=== PATIENT | male | born 1975 | race African-American/Black ===

== ENCOUNTER 2017-02-26 14:05 | Inpatient (IN) | payer OTHER ==
--- NOTE | 2017-02-26 14:11 | PDOC ---
History of Present Illness - General History Source: Patient Exam Limitations: No Limitations - History of Present Illness Initial Comments: 02/26/17 14:43 The patient is a 41 year old male, with no significant past medical history, who presents to the emergency department with a sore throat for the past 2-3 days. Over the past 2-3 days, the patient reports that he has been unable to swallow or speak secondary to his throat pain. The patient additionally reports that because he is having difficulty swallowing, his saliva keeps building up. The patient reports that he was seen at [facility] earlier today but was sent to the ED for further evaluation. The patient reports a fever and right sided ear pain but denies chills, nausea, vomiting or diarrhea. Allergies: None reported. Past Surgical History: None reported. Social History: Non-smoker. PCP: Dr. Mechelle Raza <Evelin Martinez - Last Filed: 02/26/17 14:45> - General History Source: Patient Exam Limitations: No Limitations <Marcello Melvin - Last Filed: 02/26/17 16:38> - General Chief Complaint: Sore Throat Stated Complaint: SORE THROAT Time Seen by Provider: 02/26/17 14:10 Past History <Evelin Martinez - Last Filed: 02/26/17 14:45> <Marcello Melvin - Last Filed: 02/26/17 16:38> - Past Medical History Allergies/Adverse Reactions: Allergies Allergy/AdvReac Type Severity Reaction Status Date / Time No Known Allergies Allergy Verified 02/26/17 14:27 Home Medications: Ambulatory Orders Amoxicillin/Potassium Clav [Augmentin 875-125 Tablet] 1 each PO BID 02/26/17 Prednisone [Deltasone] 20 mg PO DAILY 02/26/17 Review of Systems - Review of Systems Able to Perform ROS?: Yes Comments:: 02/26/17 14:28 CONSTITUTIONAL: Present: +Fever Absent: chills, diaphoresis, generalized weakness, malaise, loss of appetite HEENT: Present: +Sore throat, difficulty swallowing, right ear pain Absent: rhinorrhea, nasal congestion, eye pain, visual changes CARDIOVASCULAR: Absent: chest pain, syncope, palpitations, irregular heart rate, lightheadedness , peripheral edema RESPIRATORY: Absent: cough, shortness of breath, dyspnea with exertion, orthopnea, wheezing, stridor, hemoptysis GASTROINTESTINAL: Absent: abdominal pain, abdominal distension, nausea, vomiting, diarrhea, constipation, melena, hematochezia GENITOURINARY: Absent: dysuria, frequency, urgency, hesitancy, hematuria, flank pain, genital pain MUSCULOSKELETAL: Absent: myalgia, arthralgia, joint swelling SKIN: Absent: rash, itching, pallor HEMATOLOGIC/IMMUNOLOGIC: Absent: easy bleeding, easy bruising, lymphadenopathy, frequent infections ENDOCRINE: Absent: unexplained weight gain, unexplained weight loss, heat intolerance, cold intolerance NEUROLOGIC: Absent: headache, focal weakness or paresthesias, dizziness, unsteady gait, seizure, mental status changes, bladder or bowel incontinence PSYCHIATRIC: Absent: anxiety, depression, suicidal or homicidal ideation, hallucinations <Evelin Martinez - Last Filed: 02/26/17 14:45> *Physical Exam - Physical Exam Comments: 02/26/17 14:28 GENERAL: Well developed, well nourished. Awake and alert. No acute distress. HEENT: Hot potato voice. Trismus. There is bilateral tonsillar edema and exudate most pronounced on the right side. Soft palate swelling noted on right side with uvular deviation to the left. Normocephalic, atraumatic. PERRLA, EOMI. No conjunctival pallor. Sclera are non-icteric. Moist mucous membranes. Oropharynx is clear. NECK: No stridor. Supple. Full ROM. No JVD. Carotid pulses 2+ and symmetric, without bruits. No thyromegaly. No lymphadenopathy. CARDIOVASCULAR: Tachycardic. No murmurs, rubs, or gallops. Distal pulses are 2+ and symmetric. PULMONARY: No evidence of respiratory distress. Lungs clear to auscultation bilaterally. No wheezing, rales or rhonchi. ABDOMINAL: Soft. Non-tender. Non-distended. No rebound or guarding. No organomegaly. Normoactive bowel sounds. MUSCULOSKELETAL: Normal range of motion at all joints. No bony deformities or tenderness. No CVA tenderness. EXTREMITIES: No cyanosis. No clubbing. No edema. No calf tenderness. SKIN: Warm and dry. Normal capillary refill. No rashes. No jaundice. NEUROLOGICAL: Alert, awake, appropriate. Cranial nerves 2-12 intact. No deficits to light touch and temperature in face, upper extremities and lower extremities. No motor deficits in the in face, upper extremities and lower extremities. Normoreflexic in the upper and lower extremities. Normal speech. Toes are down-going bilaterally. Gait is normal without ataxia. PSYCHIATRIC: Cooperative. Good eye contact. Appropriate mood and affect. <Evelin Martinez - Last Filed: 02/26/17 14:45> ED Treatment Course - LABORATORY CBC & Chemistry Diagram: 02/26/17 14:40 02/26/17 14:40 <Marcello Melvin - Last Filed: 02/26/17 16:38> Medical Decision Making - Medical Decision Making 02/26/17 14:18 The patient is well-appearing and in no acute distress He has to SIRS criteria and an obvious source of infection He meets diagnostic criteria for sepsis Given his constellation of signs and symptoms I'm concerned for streptococcal pharyngitis with right-sided peritonsillar abscess Will place IV and begin fluid resuscitation Will administer IV Decadron, IV Toradol for anti-inflammatory treatment Will administer IV Unasyn Will obtain stat labs and initiate sepsis protocol He will require CT soft tissue neck with IV contrast to confirm abscess formation 02/26/17 15:01 Labs have been drawn and pending IV fluids and medications are running plasma processing technician is en route 02/26/17 15:44 CBC noted, with leukocytosis Chemistries noted with mildly elevated creatinine and mild hyponatremia as well as mild hyperglycemia Given the patient's weight, I feel that a creatinine of 1.4 is only mildly elevated Will continue hydration and proceed with CT scan CT pending 02/26/17 16:[address] readings confirm peritonsillar abscess Using ultrasound guidance, a left peritonsillar abscess was identified The area was numbed with a total of 4 mL of lidocaine without epinephrine extending from the superior medial border to the inferior lateral border Using an 18-gauge needle, the needle was inserted into the superior medial border of the abscess, with aspiration of 5 mL of yulissa purulence. Once Using an 18-gauge needle, the needle was then inserted fpc between the first puncture site and the inferior lateral border, with aspiration of 2 mL of yulissa purulence. There was no significant post procedure bleeding Following the procedure, the patient did express some improvement in the pain and in his voice Clinical impression: Pharyngitis, streptococcal Peritonsillar abscess Sepsis Case discussed in detail with admitting provider including history, physical exam and ancillary studies. Admitting physician has assumed care for the patient, will follow all pending diagnostics and will complete the evaluation and treatment. A portion of this note was documented by scribe services under my direction. I have reviewed the details of the note, within reason, and agree with the documentation with the following case summary and management plan written by me. 02/26/17 16:38 Case discussed with ENT, Dr. Perez He feels that the aspiration should be sufficient but will be available for questions should they arise <Marcello Melvin - Last Filed: 02/26/17 16:38> *DC/Admit/Observation/Transfer - Attestations Scribe Attestion: 02/26/17 14:20 Documentation prepared by Evelin Martinez, acting as medical physicist for Marcello Melvin MD. <Evelin Martinez - Last Filed: 02/26/17 14:45> - Discharge Dispostion Admit: Yes <Marcello Melvin - Last Filed: 02/26/17 16:38> Diagnosis at time of Disposition: Sepsis, Pharyngitis, Peritonsillar abscess - Discharge Dispostion Condition at time of disposition: Fair - Referrals Referrals: Mechelle Raza [Primary Care Provider] -
[2017-02-26] MEDS ORDERED: KETOROLAC TROMETHAMINE 30 MG/1 ML VIAL IVPUSH ONE (14:17)
[2017-02-26] MEDS ORDERED: DEXAMETHASONE SOD PHOSPHATE 10 MG/1 ML VIAL IVPUSH ONE (14:17)
[2017-02-26] MEDS ORDERED: AMPICILLIN NA/SULBACTAM NA 3 GM in SODIUM CHLORIDE 100 ML IVPB ONE (14:18)
[2017-02-26] MEDS ORDERED: DEXTROSE 5%-NORMAL SALINE 1,000 ML IV SCH (14:30)
[2017-02-26] MEDS ORDERED: KETOROLAC TROMETHAMINE 30 MG/1 ML VIAL ONE (14:51)
[2017-02-26] MEDS ORDERED: DEXAMETHASONE SOD PHOSPHATE 10 MG/1 ML VIAL ONE (14:51)
[2017-02-26] MEDS ORDERED: AMPICILLIN NA/SULBACTAM NA 3 GM VIAL ONE (14:51)
[2017-02-26 15:10] LABS: ACTIVATED PTT 25.9 SECONDS (24.0-38.9); ALBUMIN 4.7 g/dl (3.5-5.0); ALK PHOS 58 U/L (32-92); ANION GAP 8 (8-16); BILIRUBIN,TOTAL 2.6 mg/dl (0.2-1.0); CALCIUM 9.7 mg/dl (8.4-10.2); CO2 28 mmol/L (22-28); CREATININE 1.4 mg/dl (0.6-1.3); GLUCOSE,RANDOM 115 mg/dl (74-106); SGOT/AST 23 U/L (10-42); SGPT/ALT 18 U/L (10-40); TOT PROT 8.7 g/dl (6.4-8.3)
[2017-02-26 15:14] LABS: INR 1.27 (0.82-1.09); PROTHROMBIN TIME (PATIENT) 14.2 SEC (10.2-13.0)
[2017-02-26 15:19] LABS: MCH 31.6 pg (25.7-33.7); MCHC 35.4 g/dl (32.0-35.9); MEAN CELL VOLUME 89.2 fl (80-96); MEAN PLT VOLUME 9.4 fl (7.5-11.1); PLATELET COUNT 168 K/MM3 (134-434); RDW 12.8 % (11.9-15.9); WHITE BLOOD COUNT 20.4 K/mm3 (4.0-10.8)
[2017-02-26] MEDS ORDERED: SODIUM CHLORIDE 1,000 ML IV STA (15:45)
[2017-02-26] MEDS ORDERED: morphine CARPU-JECT 2 MG/1 ML DISP.SYRIN IVPUSH PRN (16:43)
[2017-02-26 17:48] VITALS: BMI 29.0
[2017-02-26 18:13] LABS: URINE APPEARANCE Clear; URINE BILIRUBIN Negative (NEGATIVE); URINE GLUCOSE (UA) 1+ (NEGATIVE); URINE KETONE Trace (NEGATIVE); URINE LEUK ESTERASE Negative (NEGATIVE); URINE NITRITE Negative (NEGATIVE); URINE UROBILINOGEN >=8.0 E.U./dl (0.2-1.0)
[2017-02-26 18:31] LABS: URINE BLOOD 2+ (NEGATIVE); URINE COLOR YELLOW; URINE PROTEIN 2+ (NEGATIVE)
[2017-02-26 19:00] LABS: PLATELET ESTIMATE ADEQUATE (NORMAL)
[2017-02-26] MEDS: SODIUM CHLORIDE 1,000 ML IV SCH (20:51)
[2017-02-26] MEDS: AMPICILLIN NA/SULBACTAM NA 3 GM in SODIUM CHLORIDE 100 ML IVPB SCH (21:05)
--- NOTE | 2017-02-26 21:48 | HP ---
CHIEF COMPLAINT: Sore throat PCP: Mechelle Raza HISTORY OF PRESENT ILLNESS: This is a 41 year old male with no significant past medical history who presented to the ED for sore throat; was sent from urgent care. Pt reports sore throat x 2-3 days, hot cold flashes x 2 days. Pt has been unable to swallow liquids including his own saliva. Pt underwent needle aspiration of peritonsillar abscess in ED and is now feeling a little better. Pt reports a hospitalization in 1987 for a similar episode but a tonsillectomy was not done at that time ER course was notable for: (1) Needle aspiration of peritonsillar abscess (2) WBC 20.4 Recent Travel: pt denies PAST MEDICAL HISTORY: "pinched nerve in neck" PAST SURGICAL HISTORY: pt denies Social History: Smoking: occ, sometimes when he goes out Alcohol: 2-3 x / week Drugs: pt denies Family History: mother alive and well-obses, father unknown brother and sisters alive and well, obesity and osteoarthritis one child alive and well Allergies No Known Allergies Allergy (Verified 02/26/17 14:27) HOME MEDICATIONS: No home medications REVIEW OF SYSTEMS CONSTITUTIONAL: Present: fever, chills Absent: diaphoresis, generalized weakness, malaise, loss of appetite, weight change HEENT: Present: throat pain, difficulty swallowing, continues to be spitting saliva, not clearly managing oral secretions Absent: rhinorrhea, nasal congestion, throat swelling, mouth swelling, ear pain , eye pain, visual changes CARDIOVASCULAR: Absent: chest pain, syncope, palpitations, irregular heart rate, lightheadedness , peripheral edema RESPIRATORY: Absent: cough, shortness of breath, dyspnea with exertion, orthopnea, wheezing, stridor, hemoptysis GASTROINTESTINAL: Absent: abdominal pain, abdominal distension, nausea, vomiting, diarrhea, constipation, melena, hematochezia GENITOURINARY: Absent: dysuria, frequency, urgency, hesitancy, hematuria, flank pain, genital pain MUSCULOSKELETAL: Absent: myalgia, arthralgia, joint swelling, back pain, neck pain SKIN: Absent: rash, itching, pallor HEMATOLOGIC/IMMUNOLOGIC: Absent: easy bleeding, easy bruising, lymphadenopathy, frequent infections ENDOCRINE: Absent: unexplained weight gain, unexplained weight loss, heat intolerance, cold intolerance NEUROLOGIC: Present: headache Absent: focal weakness or paresthesias, dizziness, unsteady gait, seizure, mental status changes, bladder or bowel incontinence PSYCHIATRIC: Absent: anxiety, depression, suicidal or homicidal ideation, hallucinations. PHYSICAL EXAMINATION Vital Signs - 24 hr 3 02/26/17 02/26/17 14:10 17:16 Temperature 102.3 F H 100.4 F H Pulse Rate 104 H 85 Respiratory 18 18 Rate Blood Pressure 122/84 140/83 O2 Sat by Pulse 98 98 Oximetry (%) GENERAL: Awake, alert, and fully oriented, in no acute distress. HEAD: Normal with no signs of trauma. EYES: Pupils equal, round and reactive to light, extraocular movements intact, sclera anicteric, conjunctiva clear. No lid lag. EARS, NOSE, THROAT: Ears normal, nares patent. Moist mucous membranes. + erythema, exudate and edema bilat tonsils. Uvula no longer deviated. Needle incision oh noted. NECK: Normal range of motion, supple without lymphadenopathy, JVD, or masses. soft tissue mass noted lateral to right thyroid, nontender LUNGS: Breath sounds equal, clear to auscultation bilaterally. No wheezes, and no crackles. No accessory muscle use. HEART: Regular rate and rhythm, normal S1 and S2 without murmur, rub or gallop. ABDOMEN: Soft, nontender, not distended, normoactive bowel sounds, no guarding, no rebound, no masses. No hepatomegaly or splenomegaly. MUSCULOSKELETAL: Normal range of motion at all joints. No bony deformities or tenderness. No CVA tenderness. UPPER EXTREMITIES: 2+ pulses, warm, well-perfused. No cyanosis. No clubbing. No peripheral edema. LOWER EXTREMITIES: 2+ pulses, warm, well-perfused. No calf tenderness. No peripheral edema. NEUROLOGICAL: Cranial nerves II-XII intact. Normal speech. Normal gait. PSYCHIATRIC: Cooperative. Good eye contact. Appropriate mood and affect. SKIN: Warm, dry, normal turgor, no rashes or lesions noted, normal capillary refill. Laboratory Results - last 24 hr 3 02/26/17 02/26/17 02/26/17 14:40 14:40 14:40 WBC 20.4 H RBC 5.40 Hgb 17.1 H Hct 48.2 MCV 89.2 MCHC 35.4 RDW 12.8 Plt Count 168 MPV 9.4 Neutrophils % 85.0 H Lymphocytes % 4.0 L Monocytes % 6.0 Basophils % 2.0 Band Neutrophils 3.0 Platelet Estimate Adequate Platelet Comment Few large plts INR 1.27 H PTT (Actin FS) 25.9 L Sodium 135 L Potassium 3.4 L Chloride 99 Carbon Dioxide 28 Anion Gap 8 BUN 14 Creatinine 1.4 H Creat Clearance w eGFR 55.31 Random Glucose 115 H Lactic Acid 1.7 Calcium 9.7 Total Bilirubin 2.6 H Direct Bilirubin 0.5 H AST 23 ALT 18 Alkaline Phosphatase 58 Total Protein 8.7 H Albumin 4.7 Urine Color Urine Appearance Urine pH Ur Specific Lane Urine Protein Urine Glucose (UA) Urine Ketones Urine Blood Urine Nitrite Urine Bilirubin Urine Urobilinogen Ur Leukocyte Esterase Urine RBC Urine WBC Ur Epithelial Cells 3 02/26/17 17:30 Urine Color Yellow Urine Appearance Clear Urine pH 6.[address] 1.010 Urine Protein 2+ H Urine Glucose (UA) 1+ H Urine Ketones Trace Urine Blood 2+ H Urine Nitrite Negative Urine Bilirubin Negative Urine Urobilinogen >=8.0 e.u./dl Ur Leukocyte Esterase Negative Urine RBC 5-8 Urine WBC 3-5 Ur Epithelial Cells 0-[address]/SOFT TISSUE NECK CT WITH CONTR Neck soft tissue CT (with contrast) Clinical information: suspected right peritonsillar abscess Multiplanar imaging was performed following the intravenous administration of nonionic contrast A lobulated rim-enhancing fluid collection consistent with abscess formation measuring approximately 6 x 3 x 2 cm in overall size is noted within the right peritonsillar region extending superiorly into the right lateral half of the uvula and bulging inferiorly into the right pyriform sinus. There is also probable superior extension into the lateral aspect of the the right nasopharynx with thickening of the torus tubarius. A very small amount of fluid accumulation is seen within the right submandibular triangle abutting the posterior border of the submandibular gland. No discrete abscess is visualized in that region. A mildly enlarged homogeneous right internal jugular lymph node is seen which is probably reactive in nature. An approximately 4 x 3.4 x 2.4 cm nonspecific isodense nonenhancing lesion is noted along the ventral lateral aspect of the right neck abutting the thyroid lamina. There is no definite intralaryngeal extension. No discrete cartilage defect is noted. As to whether this structure is superficial or deep to the ipsilateral strap muscle is difficult to determine on the basis of this exam. The remaining soft tissue structures demonstrate no definite CT pathology. There is partial obscuration of soft tissue detail due to metallic artifact arising from right ear jewelry. Impression: a large right peritonsillar abscess is noted with superior and inferior extension as discussed above. A nonspecific 4 x 3.4 x 2.4 cm lesion is seen abutting the ventral lateral aspect of the right thyroid lamina - ? Eccentric thyroglossal duct cyst with intraluminal debris, versus a brachial cleft cyst with internal debris, and probably less likely representing a soft tissue mass lesion on the basis of this exam. Additional evaluation utilizing contrast enhanced MRI is suggested. This lesion was partially imaged at the time of a cervical spine MRI study of 09/08/2015. Allowing for only partial visualization at the time of the 2016 study there probably has been no gross interval change. Correlate clinically ASSESSMENT/PLAN: 41yM with no significant PMH presented with throat pain. Pt has been admitted for peritonsillar abscess. Sepsis secondary to peritonsillar abscess - as evidenced by fever, elevated WBC and tachycardia - s/p needle aspiration of abscess, culture pending - cont unasyn 3g q6h IVPB - NS @ 100cc/hr as pt still not taking liquids adequately. - given decadron in ED - ENT consult if not improving elevated Cr - Cr 1.4, no previous baseline - repeat BMP in AM elevated bilirubin - repeat LFTs in am, no hepatomegaly DVT PPX - chemoprophylaxis deferred, pt fully ambulatory. Encourage ambulation. FEN - NS @ 100cc/hr - Repeat BMP in am - clear liquids as tolerated, can trial soft diet tomorrow if feeling better. Dispo: Pt requires inpatient management of his emergent condition. Visit type - Emergency Visit Emergency Visit: Yes ED Registration Date: 02/26/17 Care time: The patient presented to the Emergency Department on the above date and was hospitalized for further evaluation of their emergent condition. - New Patient This patient is new to me today: Yes Date on this admission: 02/26/17 - Critical Care Critical Care patient: No
[2017-02-26] MEDS ORDERED: ACETAMINOPHEN 650 MG/20.3 ML ORAL SOLUTION (CUPS) PO PRN (23:18)
[2017-02-27] MEDS: AMPICILLIN NA/SULBACTAM NA 3 GM in SODIUM CHLORIDE 100 ML IVPB SCH ×3 (02:48→15:17)
[2017-02-27 09:10] LABS: BASOPHIL 0.2 % (0-2.0); MCH 30.4 pg (25.7-33.7); MCHC 33.8 g/dl (32.0-35.9); MEAN CELL VOLUME 89.9 fl (80-96); MEAN PLT VOLUME 9.4 fl (7.5-11.1); NEUTROPHILS 90.9 % (42.8-82.8); PLATELET COUNT 163 K/MM3 (134-434); RDW 12.8 % (11.9-15.9); WHITE BLOOD COUNT 20.9 K/mm3 (4.0-10.8)
--- NOTE | 2017-02-27 09:17 | EKG ---
Test Reason : Blood Pressure : / mmHG Vent. Rate : 093 BPM Atrial Rate : 093 BPM P-R Int : 156 ms QRS Dur : 082 ms QT Int : 302 ms P-R-T Axes : 050 032 014 degrees QTc Int : 375 ms SINUS RHYTHM NONSPECIFIC T WAVE ABNORMALITY ABNORMAL ECG NO PREVIOUS ECGS AVAILABLE Confirmed by BILLY ZAVALETA MD ([id number]) on 02/27/2017 9:17:49 AM Referred By: PONCE Confirmed By:BILLY ZAVALETA MD
[2017-02-27] MEDS ORDERED: PT OWN MED DRAWER 7, Y5N ONE ×2 (09:21→14:33)
[2017-02-27 11:30] LABS: ANION GAP 10 (8-16); CO2 22 mmol/L (22-28)
[2017-02-27] MEDS: SODIUM CHLORIDE 1,000 ML IV SCH (11:33)
[2017-02-27 11:36] LABS: CALCIUM 8.8 mg/dl (8.4-10.2); CREATININE 0.9 mg/dl (0.6-1.3); GLUCOSE,RANDOM 131 mg/dl (74-106)
[2017-02-27 11:39] LABS: ALBUMIN 3.4 g/dl (3.5-5.0); BILIRUBIN,DIRECT 0.3 mg/dl (0.0-0.2); BILIRUBIN,TOTAL 1.4 mg/dl (0.2-1.0); TOT PROT 6.6 g/dl (6.4-8.3)
[2017-02-27] MEDS ORDERED: D5-1/2NS+20 MEQ KCL - 1,000 ML IV SCH (13:15)
--- NOTE | 2017-02-27 13:54 | PN ---
Physical Exam: SUBJECTIVE: Patient seen and examined, patient reports feeling slightly improved, denies any tactile fever OBJECTIVE: patient is a 41 y/o male with no significant past medical history, patient was admitted from the emergency department for sepsis from a peritonsilar abscess, s /p needle aspiration. Vital Signs Period Temp Pulse Resp BP Sys/Rouse Pulse Ox Last 24 Hr 98.6 F-99.1 F 61-75 19-20 113-129/66-78 96-99 GENERAL: The patient is awake, alert, and fully oriented, in no acute distress. HEAD: Normal with no signs of trauma. EYES: PERRL, extraocular movements intact, sclera anicteric, conjunctiva clear. No ptosis. ENT: Ears normal, nares patent, + 3 erythematous tonsil, no uvula deviation, erythema noted to soft palate, moist mucous membranes. NECK: Trachea midline, full range of motion, supple. LUNGS: Breath sounds equal, clear to auscultation bilaterally, no wheezes, no crackles, no accessory muscle use. HEART: Regular rate and rhythm, S1, S2 without murmur, rub or gallop. ABDOMEN: Soft, nontender, nondistended, normoactive bowel sounds, no guarding, no rebound, no hepatosplenomegaly, no masses. EXTREMITIES: 2+ pulses, warm, well-perfused, no edema. NEUROLOGICAL: Cranial nerves II through XII grossly intact. Normal speech, gait not observed. PSYCH: Normal mood, normal affect. SKIN: Warm, dry, normal turgor, no rashes or lesions noted Laboratory Results - last 24 hr 02/26/17 02/26/17 02/27/17 17:30 20:45 07:00 WBC 20.9 H RBC 4.61 Hgb 14.0 D Hct 41.4 MCV 89.9 MCHC 33.8 RDW 12.8 Plt Count 163 MPV 9.4 Neutrophils % 90.9 H Lymphocytes % 4.3 L Monocytes % 4.6 Eosinophils % 0.0 Basophils % 0.2 Sodium Potassium Chloride Carbon Dioxide Anion Gap BUN Creatinine Random Glucose Lactic Acid 1.2 Calcium Total Bilirubin Direct Bilirubin AST ALT Alkaline Phosphatase Total Protein Albumin Urine Color Yellow Urine Appearance Clear Urine pH 6.0 Ur Specific [place] 1.010 Urine Protein 2+ H Urine Glucose (UA) 1+ H Urine Ketones Trace Urine Blood 2+ H Urine Nitrite Negative Urine Bilirubin Negative Urine Urobilinogen >=8.0 e.u./dl Ur Leukocyte Esterase Negative Urine RBC 5-8 Urine WBC 3-5 Ur Epithelial Cells 0-3 02/27/17 02/27/17 07:00 08:12 WBC RBC Hgb Hct MCV MCHC RDW Plt Count MPV Neutrophils % Lymphocytes % Monocytes % Eosinophils % Basophils % Sodium 139 Potassium 3.5 Chloride 107 Carbon Dioxide 22 D Anion Gap 10 BUN 15 Creatinine 0.9 D Random Glucose 131 H Lactic Acid Calcium 8.8 Total Bilirubin 1.4 H D Direct Bilirubin 0.3 H D AST 21 ALT 17 Alkaline Phosphatase 43 D Total Protein 6.6 D Albumin 3.4 L D Urine Color Urine Appearance Urine pH Ur Specific [place] Urine Protein Urine Glucose (UA) Urine Ketones Urine Blood Urine Nitrite Urine Bilirubin Urine Urobilinogen Ur Leukocyte Esterase Urine RBC Urine WBC Ur Epithelial Cells Active Medications Generic Name Dose Route Start Last Admin Trade Name Freq PRN Reason Stop Dose Admin Acetaminophen 650 mg 02/26/17 23:18 Tylenol Oral Solution - PO Q4H PRN FEVER OR PAIN Ampicillin Sodium/Sulbactam 100 mls @ 200 mls/hr 02/26/17 21:00 02/27/17 09:25 Sodium 3 gm/ Sodium Chloride IVPB 200 mls/hr Q6H-IV EDILBERTO Administration Potassium Chloride/Dextrose/Sod Cl 1,000 mls @ 125 mls/hr 02/27/17 13:15 D5-1/2ns+20 Meq Kcl - IV ASDIR EDILBERTO Morphine Sulfate 1 mg 02/26/17 16:43 Morphine Injection - IVPUSH Q4H PRN PAIN Microbiology 02/26/17 16:15 Abscess Gram Stain - Final 02/26/17 14:25 Throat Group A Strep Rapid Antigen - Final, negative IMAGING ct/soft tissue neck w/contrast: large right peritonsilar abscess, nonspecific 4x3.4x2.4cm lesion ventral lateral aspect of the right thyroid lamina, ? eccentric thyroglossal duct cyst with intraluminal debris, versus a brachial cleft cyst with internal debris. (as per radiologist, Dr Worley) ASSESSMENT/PLAN: 1)Sepsis secondary to peritonsillar abscess - low grade temp noted, leukocytosis noted - f/u abscess and throat culture - continue unasyn 3gm q6h, appreciate ID input for antibiotic approval - ct results reviewed with patient made aware of thyroglossal cyst and will require outpatient ent follow up, pt verbalizes understanding - will require outpatient ent follow up 2) neph josette - repeat creatine 0.9, likely secondary to dehydration, continue ivf DVT PPX - chemoprophylaxis deferred, pt fully ambulatory. Encourage ambulation. FEN - IVF @125ml/hr - Repeat BMP in am - full liquid as tolerated, can trial soft diet tomorrow if feeling better. Dispo: Pt requires inpatient management of his emergent condition. Visit type - Emergency Visit Emergency Visit: Yes ED Registration Date: 02/26/17 Care time: The patient presented to the Emergency Department on the above date and was hospitalized for further evaluation of their emergent condition. - New Patient This patient is new to me today: Yes Date on this admission: 02/27/17 - Critical Care Critical Care patient: No - Discharge Referral Referred to [facility] Med [facility].: No
[2017-02-27 16:47] LABS: MCH 30.6 pg (25.7-33.7); MEAN CELL VOLUME 90.2 fl (80-96); MEAN PLT VOLUME 9.3 fl (7.5-11.1); PLATELET COUNT 153 K/MM3 (134-434); RDW 12.6 % (11.9-15.9); WHITE BLOOD COUNT 19.9 K/mm3 (4.0-10.8)
[2017-02-27 19:26] LABS: PLATELET ESTIMATE ADEQUATE (NORMAL)
[2017-02-27] MEDS: AMPICILLIN NA/SULBACTAM NA 100 ML IVPB SCH (20:36)
[2017-02-28] MEDS: AMPICILLIN NA/SULBACTAM NA 100 ML IVPB SCH ×4 (02:15→20:30)
[2017-02-28 08:48] LABS: BASOPHIL 0.5 % (0-2.0); EOSINOPHIL 0.2 % (0-4.5); MCH 30.9 pg (25.7-33.7); MCHC 34.2 g/dl (32.0-35.9); MEAN CELL VOLUME 90.4 fl (80-96); MEAN PLT VOLUME 9.9 fl (7.5-11.1); NEUTROPHILS 72.6 % (42.8-82.8); PLATELET COUNT 152 K/MM3 (134-434); RDW 12.9 % (11.9-15.9); WHITE BLOOD COUNT 11.8 K/mm3 (4.0-10.8)
[2017-02-28 08:51] LABS: ANION GAP 7 (8-16); CALCIUM 8.3 mg/dl (8.4-10.2); CO2 26 mmol/L (22-28); GLUCOSE,RANDOM 98 mg/dl (74-106)
--- NOTE | 2017-02-28 09:26 | PN ---
Progress Note (short form) - Note Progress Note: ID Consult dictated R peritonsillar abscess s/p aspiration Leukocytosis Await c/s Continue Unasyn 3gm IVPB q6h ENT evaluation
--- NOTE | 2017-02-28 11:06 | CONS ---
DATE OF CONSULTATION: DATE OF DICTATION: 02/28/2017 The patient is a 41-year-old previously healthy male evaluated for right peritonsillar abscess. Patient presented to the hospital with a 2- to 3-day history of worsening sore throat. He had presented to an urgent care center with complaints of worsening sore throat. In the urgent care center he was prescribed Augmentin and prednisone. He states that he was unable to swallow the medication and was unable to take it. He did develop worsening throat pain with dysphagia, odynophagia, and inability to even tolerate oral liquids. He presented to the emergency room on February 26, 2017, where a CAT scan showed a large right peritonsillar abscess. An aspiration was performed in the emergency room, and 5 mL of pus was obtained. It was sent for culture. He was empirically treated with Unasyn. In addition, the patient received a dose of dexamethasone. He reports clinical improvement on the IV antibiotic therapy and steroids status post aspiration. He is now able to tolerate liquids and reports his voice has improved. He reports improvement in the dysphagia and odynophagia. His course has been complicated by fever to 102.3. PAST MEDICAL HISTORY: Negative. ALLERGIES: No known allergies. MEDICATIONS: Medications at the present time include Tylenol, Unasyn, morphine injection. SOCIAL HISTORY: Positive tobacco, occasional EtOH. 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 REVIEW OF SYSTEMS: Neurologic: No loss of consciousness, seizure activity, focal weakness. Cardiac: Negative chest pain or palpitations. Respiratory: Negative cough or sputum production. Gastrointestinal: Negative vomiting or diarrhea. Genitourinary: Negative for urinary tract infection. LABORATORY DATA: White count on admission 20.4, presently 19.9, 85 neutrophils, 8 lymphocytes, 6 monocytes. Hematocrit 41.0, platelet count 153. BUN 15, creatinine 0.9. [place] spot negative. Urinalysis: White cells 3-5. Blood culture is negative. Throat culture negative. Aspirate of the abscess is pending. PHYSICAL EXAMINATION: General: He is awake and alert. He is in no acute distress. Respiratory: Status is stable. Breathing is not labored. No stridor or wheeze. Vital Signs: Temperature 98.1, T-max 102.3. Blood pressure 114/74. Pulse 51, regular. Respirations 17 per minute. HEENT: Sclerae are anicteric. Oropharynx: There is slight injection, right tonsillar bed. The airway is patent. There is no exudate. Neck: Supple. No palpable nodes. Cardiovascular: Heart sounds S1, S2. Lungs: Clear, no stridor or wheezing. Abdomen: Soft. No tenderness elicited. No mass, rebound, or rigidity. Extremities: Negative for edema. IMPRESSION: 1. Right peritonsillar abscess status post aspiration. 2. Leukocytosis, multifactorial. Await blood and aspirate culture results. Continue empiric Unasyn 3 g IV piggyback every 6 hours. Repeat complete blood count. Ear, Nose, and Throat evaluation. Will follow. Thank you for the kind referral. SORAIDA CHATTERJEE M.D. [id number]
--- NOTE | 2017-02-28 15:16 | PN ---
Physical Exam: SUBJECTIVE: Patient seen and examined, reports feeling much better, drinking broth OBJECTIVE:patient is a 41 y/o male with no significant past medical history, patient was admitted from the emergency department for sepsis from a peritonsilar abscess, s/p needle aspiration. Vital Signs Period Temp Pulse Resp BP Sys/Rouse Pulse Ox Last 24 Hr 98.1 F-98.7 F 51-57 17-21 113-123/60-76 100-100 GENERAL: The patient is awake, alert, and fully oriented, in no acute distress. HEAD: Normal with no signs of trauma. EYES: PERRL, extraocular movements intact, sclera anicteric, conjunctiva clear. No ptosis. ENT: Ears normal, nares patent, speech less muffled, no trisums, +2 tonsils, erythema noted to soft palate, moist mucous membranes. NECK: Trachea midline, full range of motion, supple. LUNGS: Breath sounds equal, clear to auscultation bilaterally, no wheezes, no crackles, no accessory muscle use. HEART: Regular rate and rhythm, S1, S2 without murmur, rub or gallop. ABDOMEN: Soft, nontender, nondistended, normoactive bowel sounds, no guarding, no rebound, no hepatosplenomegaly, no masses. EXTREMITIES: 2+ pulses, warm, well-perfused, no edema. NEUROLOGICAL: Cranial nerves II through XII grossly intact. Normal speech, gait not observed. PSYCH: Normal mood, normal affect. SKIN: Warm, dry, normal turgor, no rashes or lesions noted Laboratory Results - last 24 hr 02/27/17 02/28/17 02/28/17 16:30 05:53 05:53 WBC 19.9 H 11.8 H D RBC 4.54 4.08 Hgb 13.9 12.6 Hct 41.0 36.8 MCV 90.2 90.4 MCHC 34.0 34.2 RDW 12.6 12.9 Plt Count 153 152 MPV 9.3 9.9 Neutrophils % 85.0 H 72.6 Lymphocytes % 8.0 D 17.2 D Monocytes % 6.0 9.5 Eosinophils % 0.2 D Basophils % 0.5 Band Neutrophils 1.0 D Platelet Estimate Adequate Sodium 139 Potassium 3.5 Chloride 106 Carbon Dioxide 26 Anion Gap 7 L BUN 11 D Creatinine 1.0 Random Glucose 98 D Calcium 8.3 L Active Medications Generic Name Dose Route Start Last Admin Trade Name Miquel PRN Reason Stop Dose Admin Acetaminophen 650 mg 02/26/17 23:18 Tylenol Oral Solution - PO Q4H PRN FEVER OR PAIN Potassium Chloride/Dextrose/Sod Cl 1,000 mls @ 125 mls/hr 02/27/17 13:15 13:30 D5-1/2ns+20 Meq Kcl - IV 125 mls/hr ASDIR EDILBERTO Administration Ampicillin Sodium/Sulbactam Sodium 100 mls @ 200 mls/hr 02/27/17 21:00 09:16 Unasyn 3 Gm (Pre-Docked) IVPB 200 mls/hr Q6H-IV EDILBERTO Administration Morphine Sulfate 1 mg 02/26/17 16:43 Morphine Injection - IVPUSH Q4H PRN PAIN Microbiology 02/26/17 14:40 Blood - Peripheral Venous Blood Culture - Preliminary NO GROWTH OBTAINED AFTER 48 HOURS, INCUBATION TO CONTINUE FOR 3 DAYS. 02/26/17 14:40 Blood - Peripheral Venous Blood Culture - Preliminary NO GROWTH OBTAINED AFTER 48 HOURS, INCUBATION TO CONTINUE FOR 3 DAYS. 02/26/17 16:15 Abscess Gram Stain - Final 02/26/17 16:15 Abscess Wound Culture - Preliminary Pending Organism Pending Organism#2 02/26/17 14:25 Throat Throat Culture - Final NO BETA HEMOLYTIC STREPTOCOCCI ISOLATED 02/26/17 14:25 Throat Group A Strep Rapid Antigen - Final IMAGING ct/soft tissue neck w/contrast: large right peritonsilar abscess, nonspecific 4x3.4x2.4cm lesion ventral lateral aspect of the right thyroid lamina, ? eccentric thyroglossal duct cyst with intraluminal debris, versus a brachial cleft cyst with internal debris. (as per radiologist, Dr Worley) ASSESSMENT/PLAN: 1)Sepsis secondary to peritonsillar abscess - pt afebrile, wbc trending downward - abscess culture pending organism and throat culture NTD - continue unasyn 3gm q6h, ID consulted and following - ct results reviewed with patient made aware of thyroglossal cyst and will require outpatient ent follow up, pt verbalizes understanding - will require outpatient ent follow up 2) neph josette - creatine wnl after IV hydration DVT PPX - chemoprophylaxis deferred, pt fully ambulatory. Encourage ambulation. FEN - IVF @ 75ml/hr - Repeat BMP in am - trial soft diet today, d/c tomm if afebrile and leukocytosis resolved . Dispo: Pt requires inpatient management of his emergent condition. Visit type - Emergency Visit Emergency Visit: Yes ED Registration Date: 02/26/17 Care time: The patient presented to the Emergency Department on the above date and was hospitalized for further evaluation of their emergent condition. - New Patient This patient is new to me today: No - Critical Care Critical Care patient: No - Discharge Referral Referred to [facility] Med P.C.: No
[2017-02-28] MEDS ORDERED: D5-1/2NS+20 MEQ KCL - 1,000 ML IV SCH (15:39)
[2017-02-28] MEDS ORDERED: PT OWN MED DRAWER 7, Y5N ONE ×2 (16:14→20:24)
[2017-03-01] MEDS ORDERED: PT OWN MED DRAWER 7, Y5N ONE (03:07)
[2017-03-01] MEDS: AMPICILLIN NA/SULBACTAM NA 100 ML IVPB SCH ×2 (03:10→09:49)
[2017-03-01 06:39] VITALS: BP 114/74; PULSE 49; TEMP 98.5
[2017-03-01 09:10] LABS: EOSINOPHIL 0.7 % (0-4.5); MCH 30.3 pg (25.7-33.7); MCHC 34.1 g/dl (32.0-35.9); MEAN CELL VOLUME 88.8 fl (80-96); MEAN PLT VOLUME 9.2 fl (7.5-11.1); NEUTROPHILS 55.2 % (42.8-82.8); PLATELET COUNT 185 K/MM3 (134-434); RDW 12.6 % (11.9-15.9); WHITE BLOOD COUNT 6.4 K/mm3 (4.0-10.8)
--- NOTE | 2017-03-01 09:18 | DS ---
Physical Exam: SUBJECTIVE: Patient seen and examined, patient reports feeling much better, tolerating meals. patient denies any tactile fever. OBJECTIVE: Patient is a 41 year old male with no significant past medical history who presented to the ED for sore throat; was sent from urgent care. Pt reports sore throat x 2-3 days, hot cold flashes x 2 days. Pt has been unable to swallow liquids including his own saliva. Pt underwent needle aspiration of peritonsillar abscess in ED and is now feeling a little better. Pt reports a hospitalization in 1987 for a similar episode but a tonsillectomy was not done at that time ER course was notable for: (1) Needle aspiration of peritonsillar abscess (2) WBC 20.4 Vital Signs Period Temp Pulse Resp BP Sys/Rouse Pulse Ox Last 24 Hr 98.3 F-99.3 F 49-60 18-21 114-125/72-77 99-100 PHYSICAL EXAM GENERAL: The patient is awake, alert, and fully oriented, in no acute distress. HEAD: Normal with no signs of trauma. EYES: PERRL, extraocular movements intact, sclera anicteric, conjunctiva clear. No ptosis. ENT: Ears normal, nares patent, speech less muffled, no trismus, +2 tonsils, erythema noted to soft palate, uvula midline, moist mucous membranes. NECK: Trachea midline, full range of motion, supple. LUNGS: Breath sounds equal, clear to auscultation bilaterally, no wheezes, no crackles, no accessory muscle use. HEART: Regular rate and rhythm, S1, S2 without murmur, rub or gallop. ABDOMEN: Soft, nontender, nondistended, normoactive bowel sounds, no guarding, no rebound, no hepatosplenomegaly, no masses. EXTREMITIES: 2+ pulses, warm, well-perfused, no edema. NEUROLOGICAL: Cranial nerves II through XII grossly intact. Normal speech, gait not observed. PSYCH: Normal mood, normal affect. SKIN: Warm, dry, normal turgor, no rashes or lesions noted LABS Laboratory Results - last 24 hr 03/01/17 08:15 WBC 6.4 D RBC 4.66 Hgb 14.1 D Hct 41.4 MCV 88.8 MCHC 34.1 RDW 12.6 Plt Count 185 D MPV 9.2 Neutrophils % 55.2 D Lymphocytes % 30.9 D Monocytes % 10.2 Eosinophils % 0.7 D Basophils % 3.0 H D Microbiology 02/26/17 14:40 Blood - Peripheral Venous Blood Culture - Final NO GROWTH AFTER 5 DAYS INCUBATION 02/26/17 14:40 Blood - Peripheral Venous Blood Culture - Final NO GROWTH AFTER 5 DAYS INCUBATION 02/26/17 16:15 Abscess Gram Stain - Final 02/26/17 16:15 Abscess Wound Culture - Final Beta Hem Streptococcus Group F Diphtheroid/Corynebacterium 02/26/17 14:25 Throat Throat Culture - Final NO BETA HEMOLYTIC STREPTOCOCCI ISOLATED 02/26/17 14:25 Throat Group A Strep Rapid Antigen - Final IMAGING ct/soft tissue neck w/contrast: large right peritonsilar abscess, nonspecific 4x3.4x2.4cm lesion ventral lateral aspect of the right thyroid lamina, ? eccentric thyroglossal duct cyst with intraluminal debris, versus a brachial cleft cyst with internal debris. (as per radiologist, Dr Worley) HOSPITAL COURSE: Patient was admitted from the emergency department for Sepsis secondary to peritonsillar abscess. patient is now afebrile, wbc is WNL. Abscess culture was noted, likley colonized. patient was treated with 3 days of unasyn 3gm q6h. ID, Dr Kirk was consulted and followed. ct results reviewed with patient made aware of thyroglossal cyst and will require outpatient ent follow up. Patient verbalizes understanding. SPIKE resolved after IV hydration. PLAN - ent appointment scheduled for patient at 330pm, copy of diagnostics given to patient in hand - resume augmentin 875mg bid for 7 days - return precautions reviewed Date of Admission:02/26/17 Date of Discharge: 03/01/17 Minutes to complete discharge: 45 Discharge Summary Reason For Visit: PERITONSILLAR ABSCESS Current Active Problems Peritonsillar abscess (Acute) Pharyngitis (Acute) Sepsis (Acute) Condition: Improved - Instructions Diet, Activity, Other Instructions: continue taking augmentin as prescribed please take augmentin with food you have a scheduled appointment with Dr Chalo Baca, ENT today at 350pm, please arrive 20 minutes to complete paperwork if fever, difficulty swallowing or if sore throat worsens please return to the emergency department Referrals: Marcello Cash MD [Staff Physician] - 1 Week Mathew Baca MD [Staff Physician] - (you have a scheduled appointment with Dr Baca at 350pm, please arrive 20 minutes early to complete paperwork ) Mechelle Raza [Primary Care Provider] - 2 Weeks Disposition: HOME - Home Medications Comprehensive Discharge Medication List: Ambulatory Orders Amoxicillin/Potassium Clav [Augmentin 875-125 Tablet] 1 each PO BID 02/26/17 Prednisone [Deltasone] 20 mg PO DAILY 02/26/17 This patient is new to me today: No Emergency Visit: Yes ED Registration Date: 02/26/17 Care time: The patient presented to the Emergency Department on the above date and was hospitalized for further evaluation of their emergent condition. Critical Care patient: No - Discharge Referral Referred to [facility] Med P.C.: No
--- NOTE | 2017-03-01 09:27 | PN ---
Progress Note, Physician History of Present Illness: Feeling better No c/o dysphagia/ odynophagia Tolerating solid diet No fever/ chills WBC improved BC no growth Aspirate c/s pending - Current Medication List Current Medications: Active Medications Acetaminophen (Tylenol Oral Solution -) 650 mg PO Q4H PRN PRN Reason: FEVER OR PAIN Ampicillin Sodium/Sulbactam Sodium (Unasyn 3 Gm (Pre-Docked)) 100 mls @ 200 mls /hr IVPB Q6H-IV EDILBERTO Last Admin: 03/01/17 03:10 Dose: 200 mls/hr Potassium Chloride/Dextrose/Sod Cl (D5-1/2ns+20 Meq Kcl -) 1,000 mls @ 75 mls/ hr IV ASDIR EDILBERTO Last Admin: 02/28/17 14:00 Dose: 75 mls/hr Morphine Sulfate (Morphine Injection -) 1 mg IVPUSH Q4H PRN PRN Reason: PAIN - Objective Vital Signs: Vital Signs Temperature 98.5 F 03/01/17 06:00 Pulse Rate 49 L 03/01/17 06:00 Respiratory Rate 18 03/01/17 06:00 Blood Pressure 114/74 03/01/17 06:00 O2 Sat by Pulse Oximetry (%) 99 03/01/17 06:00 Constitutional: Yes: No Distress Eyes: Yes: Conjunctiva Clear HENT: Yes: Pharyngeal Erythema, Other (airway patent). No: Tonsillar Exudate Neck: Yes: Supple, Other (+ submandibular nodes) Respiratory: Yes: CTA Bilaterally. No: Stridor, Wheezes Gastrointestinal: Yes: Normal Bowel Sounds, Soft. No: Tenderness Edema: No Labs: CBC, BMP 03/01/17 08:15 02/28/17 05:53 INR, PTT INR 1.27 (0.82-1.09) H 02/26/17 14:40 Assessment/Plan Peritonsilar abscess s/p drainage Improved May substitute po Augmentin 875mg bid x 7d Outpatient ENT follow up
== END 2017-03-01 14:50 | disposition home or self-care (01) | DRG 854 ==
LOC: FER 14:05 → FM/S 17:16
PROVIDERS: ADMIT Internal Medicine; ATTEND Nurse Practitioner Family
PROC: 0C9PXZZ Drainage of Tonsils, External Approach (ICD-10-PCS; principal; 2017-02-26)
DX: A41.9 Sepsis, unspecified organism (principal); J36 Peritonsillar abscess; N17.9 Acute kidney failure, unspecified; E87.1 Hypo-osmolality and hyponatremia; E86.0 Dehydration; R73.9 Hyperglycemia, unspecified
CPT/HCPCS: 36415; 70491-TC; 80048; 80053; 80076; 81003; 81015; 82248; 83605; 85025; 85610; 85730; 86308; 87040; 87070; 87186; 87205; 87430; 93005; 99283-25